=== PATIENT | female | born 1965 | race Caucasian/White ===

== ENCOUNTER 2018-02-27 14:34 | Emergency (ER) | payer OTHER ==
[~2018-02-27] VITALS: Ht 157.5 cm; Wt 95.9 kg
[2018-02-27 15:03] VITALS: BP 133/80; PULSE 94; RESP 18; TEMP 98.5; O2SAT 97
[2018-02-27] MEDS ORDERED: TETANUS/DIPHTHERIA TOXOID ADULT 0.5 ML VIAL IM ONE (15:30)
--- NOTE | 2018-02-27 15:33 | PD ---
HPI Chief Complaint: Laceration/Skin Injury Time Seen by Provider: 15:30 Travel History International Travel<30 days: No Contact w/Intl Traveler<30days: No Traveled to known affect area: No History of Present Illness HPI 52-year-old [id number] female presents for evaluation of a puncture wound to the volar aspect of the proximal left index finger. It was sustained prior to arrival and the patient was using a drill and an and unit on the drill slipped and punctured her skin. She has some pain and bleeding at the site of the wound, aching, worse with palpation. Denies any numbness, tingling, range of motion limitation. Her last tetanus vaccination is unknown. She has no other complaints at this time. [facility] Social History Alcohol Use: No Tobacco Use: No Allergies-Medications (Allergen,Severity, Reaction): Coded Allergies: morphine (Verified Allergy, Unknown, Itching, 02/27/18) Reported Meds & Prescriptions Reported Meds & Active Scripts Active Keflex (Cephalexin) 500 Mg Capsule 500 Mg PO Q8H 5 Days Review of Systems Musculoskeletal: Positive: Pain, No: Limited ROM Skin: Positive Other (Positive for puncture wound, pain, bleeding) Neurologic: No: Paresthesia Physical Exam Narrative GENERAL: Well nourished female no acute distress SKIN: Warm and dry. Puncture wound noted to the volar aspect of the proximal left index finger. CARDIOVASCULAR: Regular rate and rhythm. No murmur appreciated. RESPIRATORY: No accessory muscle use. Clear to auscultation. Breath sounds equal bilaterally. Extremities: Skin as noted above. Full flexion and extension against resistance at the left index finger MCP, PIP, DIP joints. Distal sensation preserved in the ulnar and radial aspects of the left index finger. Capillary refill less than 2 seconds. Data Data Last Documented VS Vital Signs Date Time Temp Pulse Resp B/P (MAP) Pulse Ox O2 Delivery O2 Flow Rate FiO2 02/27/18 15:03 98.5 94 18 133/80 (97) 97 Orders Orders Finger ([id number]) (02/27/18 ) Tetanus/Diphtheria Tox Adult (Tetanus/Di (02/27/18 15:30) Wound Care (02/27/18 15:30) Ibuprofen (Motrin) (02/27/18 15:45) Ed Discharge Order (02/27/18 16:20) MDM Medical Decision Making Medical Screen Exam Complete: Yes Emergency Medical Condition: Yes Medical Record Reviewed: Yes Differential Diagnosis Puncture wound, laceration, flexor tendon laceration, open fracture Narrative Course Local wound care provided. Tetanus status updated. X-ray imaging will be obtained. X-ray imaging is normal. The patient will be discharged with a short course of Keflex. Discussed signs and symptoms that would warrant returning to the emergency room. Diagnosis Primary Impression: Puncture wound of left hand Additional Instructions: Wash the wound twice a day with soap and water and apply antibiotic cream. Take Tylenol Motrin for pain. Antibiotic as prescribed. Return for any new or worsening symptoms. Med/Other Pt SpecificInfo: Prescription(s) given, Wound Care Scripts Cephalexin (Keflex) 500 Mg Capsule 500 MG PO Q8H for Infection for 5 Days, #15 CAP 0 Refills Prov: Leroy Han MD 02/27/18 Disposition: 01 DISCHARGE HOME Condition: Stable Gianni Hernandez Feb 27, 2018 15:33
[2018-02-27] MEDS ORDERED: IBUPROFEN 800 MG TAB PO ONE (15:45)
--- NOTE | 2018-02-27 16:18 | RADRPT ---
EXAM DATE/TIME: 02/27/2018 15:40 [facility] COMPARISON: No previous studies available for comparison. INDICATIONS : Left, second finger laceration, cut on drill MEDICAL HISTORY : None. SURGICAL HISTORY : None. ENCOUNTER: Initial ACUITY: 1 day PAIN SCORE: 9/10 LOCATION: Left Hand FINDINGS: Examination of the second digit of the left hand demonstrates no evidence of fracture or dislocation. No radiopaque foreign bodies are seen. The soft tissues are intact. CONCLUSION: 1. There is no evidence of acute fracture. No foreign body is identified. Cameron De MD on February 27, 2018 at 16:15 Board Certified Radiologist. This report was verified electronically.
[2018-02-27] MEDS ORDERED: CEPH-460 PO (16:20)
== END 2018-02-27 16:44 | disposition home or self-care (01) ==
LOC: NEPK 14:34
DX: S61.231A Puncture wound without foreign body of left index finger without damage to nail, initial encounter (principal); W29.8XXA Contact with other powered hand tools and household machinery, initial encounter; Z23 Encounter for immunization
CPT/HCPCS: 73140; 90471; 90714

== ENCOUNTER 2018-03-28 09:14 | Emergency (ER) | payer MEDICAID ==
[~2018-03-28] VITALS: Ht 157.5 cm; Wt 96.0 kg
[~2018-03-28 09:14] MED LIST: CEPH-460 PO
[2018-03-28 09:21] VITALS: BP 136/85; PULSE 79; RESP 18; TEMP 98.4; O2SAT 96
[2018-03-28] MEDS ORDERED: CLINDAMYCIN 150 MG CAP PO ONE (10:45)
[2018-03-28] MEDS ORDERED: NAPROXEN 500 MG TAB PO ONE (10:45)
[2018-03-28] MEDS ORDERED: CLIN300C5 PO (10:47)
[2018-03-28] MEDS ORDERED: NAPR500T2 PO (10:47)
[2018-03-28] MEDS ORDERED: PERC5TAB12 PO (10:47)
--- NOTE | 2018-03-28 10:48 | PD ---
HPI Chief Complaint: Oral / Dental Pain or Problem Time Seen by Provider: 10:35 Travel History International Travel<30 days: No Contact w/Intl Traveler<30days: No Traveled to known affect area: No History of Present Illness HPI No fevers. 52-year-old woman presents emerged department with pain and swelling the right side of her face with drainage from the back upper right jaw. She has been squeezing and pus has been coming out. History Past Medical History Medical History: Denies Significant Hx Social History Alcohol Use: No Tobacco Use: No Allergies-Medications (Allergen,Severity, Reaction): Coded Allergies: morphine (Verified Allergy, Unknown, Itching, 03/28/18) Reported Meds & Prescriptions Reported Meds & Active Scripts Active Clindamycin (Clindamycin HCl) 300 Mg Cap 300 Mg PO Q6H 7 Days Percocet (Oxycodone-Acetaminophen) 5-325 mg Tab 1-2 Tab PO Q6H PRN Naproxen 500 Mg Tab 500 Mg PO BID Keflex (Cephalexin) 500 Mg Capsule 500 Mg PO Q8H 5 Days Review of Systems Except as stated in HPI: all other systems reviewed are Neg Physical Exam Narrative GENERAL: 52-year-old woman, no acute distress per SKIN: Warm and dry. CARDIOVASCULAR: Warm and well perfused. RESPIRATORY: Normal rate and effort. HEENT: On examination of the oral pharynx there is no obvious purulence or swelling. There is a little bit of fullness to the right side of face visible from the exterior. There is no pus. Area of tenderness is more on the bottom jaw in the area where molars been removed but extends upward some as well. NEUROLOGICAL: Awake and alert. No gross deficits. Data Data Last Documented VS Vital Signs Date Time Temp Pulse Resp B/P (MAP) Pulse Ox O2 Delivery O2 Flow Rate FiO2 03/28/18 09:21 98.4 79 18 136/85 (102) 96 Orders Orders Naproxen (Naprosyn) (03/28/18 10:45) Clindamycin (Cleocin) (03/28/18 10:45) Ed Discharge Order (03/28/18 10:48) MDM Medical Decision Making Medical Screen Exam Complete: Yes Emergency Medical Condition: Yes Differential Diagnosis Infection, abscess, parotid otitis, other Narrative Course Medical decision making. 52-year-old woman with what appears to be intraoral infection. I do not see any abscess now. Has been draining. Recommend that she continues warm salt water washes and continue drainage and then take antibiotics as prescribed and follow-up with her dentist. Diagnosis Primary Impression: Facial cellulitis Additional Instructions: Take naproxen as prescribed. Use Percocet sparingly as needed for severe pain. Take antibiotics as prescribed. Return to the emergency department for any worsening swelling, fevers, redness, or any other new or worsening symptoms. Follow-up with your dentist if symptoms persist. Med/Other Pt SpecificInfo: Prescription(s) given Scripts Clindamycin (Clindamycin) 300 Mg Cap 300 MG PO Q6H for Infection for 7 Days, #28 CAP 0 Refills Prov: Jori Waldrop MD 03/28/18 Oxycodone-Acetaminophen (Percocet) 5-325 mg Tab 1-2 TAB PO Q6H Y for PAIN, #6 TAB 0 Refills Prov: Jori Waldrop MD 03/28/18 Naproxen (Naproxen) 500 Mg Tab 500 MG PO BID, #20 TAB 0 Refills Prov: Jori Waldrop MD 03/28/18 Disposition: 01 DISCHARGE HOME Condition: Stable Jori Waldrop MD March 28, 2018 10:48
== END 2018-03-28 11:27 | disposition home or self-care (01) ==
LOC: NEPE 09:14
DX: L03.211 Cellulitis of face (principal)
CPT/HCPCS: 99283